=== PATIENT | male | born 1965 | race Caucasian/White ===

== ENCOUNTER 2019-02-28 09:03 | Emergency (ER) | payer SELFPAY ==
[2019-02-28] MEDS ORDERED: SODIUM CHLORIDE 0.9% FLUSH 10 ML SOL IV PRN (09:26)
[2019-02-28] MEDS ORDERED: THIAMINE 100 MG/ML 100 MG/ML SOL IM ONE (09:26)
[2019-02-28] MEDS ORDERED: LORAZEPAM 2 MG/ML SOL IV ONE (09:26)
[2019-02-28] MEDS ORDERED: SODIUM CHLORIDE 0.9% 1000ML 1,000 ML IV SCH (09:30)
[2019-02-28] MEDS ORDERED: LORAZEPAM 2 MG/ML SOL ONE ×6 (09:40→13:38)
[2019-02-28] MEDS ORDERED: THIAMINE 100 MG/ML 100 MG/ML SOL IV ONE (09:49)
[2019-02-28] MEDS ORDERED: THIAMINE 100 MG/ML 100 MG/ML SOL ONE (09:50)
[2019-02-28 09:56] LABS: BASOPHILS % (AUTO) 1 % (0-3); EOSINOPHILS % (AUTO) 0 % (0-9); HEMATOCRIT 50 % (39-53); HEMOGLOBIN 16.2 gm/dl (13.5-17.7); LYMPHOCYTES % (AUTO) 10.4 % (10-50); MEAN CORPUSCULAR HEMOGLOBIN 31.4 pg (27.0-32.0); MEAN CORPUSCULAR HGB CONC 32.6 gm/dl (32.0-36.0); MEAN CORPUSCULAR VOLUME 97 fL (80-100); MONOCYTES % (AUTO) 15.2 % (0-12); NEUTROPHILS % (AUTO) 73.2 % (37-80)
[2019-02-28] MEDS: LORAZEPAM 2 MG/ML SOL IV PRN ×5 (10:08→13:40)
[2019-02-28 10:10] LABS: ALKALINE PHOSPHATASE 78 IU/L (46-116); ALT 207 IU/L (14-63); AST 139 IU/L (15-37); BILIRUBIN,DIRECT 0.4 mg/dl (0.0-0.2); BILIRUBIN,TOTAL 1.8 mg/dl (0.2-1.0); BLOOD UREA NITROGEN 9 mg/dl (7-18); CALCIUM 9.4 mg/dl (8.5-10.1); CHLORIDE 95 mMol/L (98-107); CREATININE 0.68 mg/dl (0.80-1.30); GLUCOSE 142 mg/dl (74-106); MAGNESIUM 1.9 mg/dl (1.8-2.4); POTASSIUM 3.8 mMol/L (3.5-5.1); SODIUM 133 mMol/L (136-145); TOTAL PROTEIN 8.4 gm/dl (6.4-8.2)
[2019-02-28 10:18] LABS: ALCOHOL < 0.003 gm/dl (0.000-0.08)
[2019-02-28 10:38] LABS: INR 1.05 (0.86-1.12)
[2019-02-28] MEDS ORDERED: SODIUM CHLORIDE 0.9% 1000ML 1,000 ML IV ONE ×2 (11:31→12:23)
[2019-02-28 13:25] VITALS: BP 141/101; PULSE 112; RESP 20; TEMP 98.6; O2SAT 96
[2019-03-02 08:16] LABS: *ALBUMIN % SEE SCAN; *ALPHA 1% SEE SCAN; *ALPHA 2% SEE SCAN; *BETA % SEE SCAN; *CALC A/G/RATIO SEE SCAN; *CALCULATED ALBUMIN SEE SCAN; *CALCULATED ALPHA 1 SEE SCAN; *CALCULATED ALPHA 2 SEE SCAN; *CALCULATED BETA SEE SCAN; *CALCULATED GAMMA SEE SCAN; *CALCULATED PARAPROTEIN SEE SCAN; *ELP TOTAL PROTEIN SEE SCAN REPORT; *GAMMA% SEE SCAN; *PARAPROTEIN% SEE SCAN
== END 2019-02-28 13:42 | disposition short-term general hospital (02) | DRG 897 ==
LOC: ED 09:03
DX: F10.231 Alcohol dependence with withdrawal delirium (principal); K70.10 Alcoholic hepatitis without ascites; E80.6 Other disorders of bilirubin metabolism; G62.1 Alcoholic polyneuropathy
CPT/HCPCS: 36415; 80048; 80076; 80307; 82962; 83735; 85025; 85610; 96365; 96366; 96374; 96375; 99283; 99285; J2060; J3411